=== PATIENT | female | born 1970 ===

== ENCOUNTER 2019-10-07 12:23 | Inpatient (IN) | payer OTHER ==
[~2019-10-07] VITALS: Ht 167.6 cm; Wt 65.8 kg
== END 2019-10-11 10:46 | disposition home or self-care (01) | DRG 743 ==
LOC: OB/GYN 10-09 05:38 → O/R 10-09 05:38 → OB/GYN 10-09 08:15
PROVIDERS: ADMIT Obstetrics & Gynecology Maternal & Fetal Medicine
PROC: 0UT70ZZ Resection of Bilateral Fallopian Tubes, Open Approach (ICD-10-PCS; 2019-10-09)
PROC: 0UT20ZZ Resection of Bilateral Ovaries, Open Approach (ICD-10-PCS; 2019-10-09)
PROC: 0UT90ZL Resection of Uterus, Supracervical, Open Approach (ICD-10-PCS; principal; 2019-10-09 10:00)
DX: D25.1 Intramural leiomyoma of uterus (principal); D25.0 Submucous leiomyoma of uterus; N93.8 Other specified abnormal uterine and vaginal bleeding; N84.0 Polyp of corpus uteri; N83.8 Other noninflammatory disorders of ovary, fallopian tube and broad ligament; N72 Inflammatory disease of cervix uteri